=== PATIENT | male | born 1955 ===

== ENCOUNTER 2017-03-21 08:27 | Emergency (ER) | payer OTHER ==
[2017-03-21 08:33] VITALS: BP 147/83; PULSE 81; RESP 20; TEMP 97.6; O2SAT 100
--- NOTE | 2017-03-21 08:42 | C.PDOC ---
History Of Present Illness 61 yo male come in for evaluation of lower back pain developed 5-6 days ago. Pt reports, pain is localized over lower back, no-radiating and worse with movement. Otherwise, pt denies known direct trauma or injury, fever, chills, recent illness, abd. pain, N/V, UTI sx, saddle anesthesia, incontinence, denies weakness, deformity, sensory or vascular deficits to B?L LEs. Ambulate to ED for evaluation, not in any apparent distress. Pt reports, takes Ibuprofen for pain with moderate improvement. Time Seen by Provider: 03/21/17 08:35 Chief Complaint (Nursing): Back Pain History Per: Patient Onset/Duration Of Symptoms: Gradual Past Medical History Reviewed: Historical Data, Nursing Documentation, Vital Signs Vital Signs: Last Vital Signs Temp 97.6 F 03/21/17 08:29 Pulse 81 03/21/17 08:29 Resp 20 03/21/17 08:29 BP 147/83 03/21/17 08:29 Pulse Ox 100 03/21/17 10:02 - Medical History PMH: Hypercholesterolemia Other Surgeries: not contributory Family History: States: No Known Family Hx - Social History Hx Tobacco Use: No Hx Alcohol Use: Yes (History) Hx Substance Use: No - Immunization History Hx Tetanus Toxoid Vaccination: No Hx Influenza Vaccination: No Hx Pneumococcal Vaccination: No Review Of Systems Except As Marked, All Systems Reviewed And Found Negative. Constitutional: Negative for: Fever, Chills ENT: Negative for: Nose Discharge, Throat Pain Cardiovascular: Negative for: Chest Pain, Light Headedness Respiratory: Negative for: Cough, Shortness of Breath, Wheezing Gastrointestinal: Negative for: Nausea, Vomiting, Abdominal Pain, Diarrhea Genitourinary: Negative for: Dysuria, Incontinence Musculoskeletal: Positive for: Back Pain. Negative for: Neck Pain Skin: Negative for: Rash, Lesions Neurological: Negative for: Weakness, Numbness, Altered Mental Status, Headache , Dizziness Physical Exam - Physical Exam Appears: Well, Non-toxic, No Acute Distress Skin: Normal Color, Warm, Dry, No Rash Eye(s): bilateral: PERRL Nose: No Flaring, No Discharge Oral Mucosa: Moist Throat: No Erythema, No Exudate, No Drooling Neck: No Midline Cervical Tenderness, No Paracervical Tenderness, No Step Off Deformity, Supple Cardiovascular: Rhythm Regular, No JVD Respiratory: No Decreased Breath Sounds, No Accessory Muscle Use, No Stridor, No Wheezing Gastrointestinal/Abdominal: Soft, No Tenderness, No Distention, No Guarding Back: No CVA Tenderness, No Vertebral Tenderness, Decreased ROM, Muscle Spasm ( lumbar paraspinal), Paraspinal Tenderness (diffuse lumbar paraspinal tenderness. No midline tenderness, no palpable deformity, no skin changes.) Extremity: No Tenderness, No Pedal Edema, No Deformity Extremity: Bilateral: Atraumatic Neurological/Psych: Oriented x3, Normal Speech, Normal Motor, Normal Sensation, Normal Reflexes ED Course And Treatment O2 Sat by Pulse Oximetry: 100 Pulse Ox Interpretation: Normal - Other Rad L-spine X-Ray: Interpreted by Me, Viewed By Me Interpretation: no acute fx or sublux Progress Note: On re-evaluation, pt is afebrile, hemodynamicaly stable. Non- toxic. Ambulatory in ED with stable gait. ENT: no acute findings. Neck: Supple. ABd: benign. Back: (-) CVA tenderness. Neuorlogicaly intact. Imaging and UA results review and appears without acute abnoramlities. Pt has clinical findings c/w lumbar strain. Pt advised. ref. to F/u with PMD In 2-3 days for re-eavl. return to ED if any worsening or new changes. Disposition Counseled Patient/Family Regarding: Studies Performed, Diagnosis, Need For Followup, Rx Given - Disposition Referrals: [facility] [Outside] Disposition: HOME/ ROUTINE Disposition Time: 09:26 Condition: STABLE Additional Instructions: Take medication as prescribed for pain as need Follow up with PMD in 2-3 days for re-evaluation. Return to ED if any worsening or new changes. Prescriptions: Methocarbamol [Robaxin] 500 mg PO TID #14 tab traMADol [Ultram] 50 mg PO TID #7 tab Instructions: Back Pain (ED) Forms: [employer]) (Kazakh) Print Language: IRAQI - Clinical Impression Clinical Impression: Low back strain
[2017-03-21 10:03] LABS: RBC URINE < 1 /hpf (0-3); URINE BILIRUBIN NEGATIVE (NEGATIVE); URINE BLOOD 2+ (NEGATIVE); URINE COLOR Yellow (YELLOW); URINE GLUCOSE (UA) NORMAL (Normal); URINE KETONE NEGATIVE (NEGATIVE); URINE LEUKOCYTE ESTERASE NEG Leu/uL (Negative); URINE PROTEIN NEGATIVE (NEGATIVE); URINE UROBILINOGEN NORMAL mg/dL (0.2-1.0); WBC URINE < 1 /hpf (0-5)
--- NOTE | 2017-03-21 11:49 | RAD ---
PROCEDURE: Radiographs of the Lumbar Spine. HISTORY: pain COMPARISON: None available. FINDINGS: BONES: Alignment appears satisfactory. No listhesis. No acute displaced fracture identified. Degenerative changes including anterior osteophyte formation most prominent at the L1-L2 and L3 levels. Facet hypertrophy. DISC SPACES: Mild intervertebral disc space narrowing. OTHER FINDINGS: None. IMPRESSION: Degenerative changes.
== END 2017-03-21 10:22 | disposition home or self-care (01) ==
LOC: C.ER 08:27
DX: S39.012A Strain of muscle, fascia and tendon of lower back, initial encounter (principal); X58.XXXA Exposure to other specified factors, initial encounter; Y93.89 Activity, other specified; Y92.89 Other specified places as the place of occurrence of the external cause